=== PATIENT | female | born 1985 | race Two or more races ===

== ENCOUNTER 2018-10-05 21:22 | Emergency (ER) | payer BC ==
--- NOTE | 2018-10-05 22:20 | EDM.PDOC ---
ED HPI GENERAL MEDICAL PROBLEM - General Source of Information: Reports: Patient History Limitations: Reports: No Limitations <Maite Neil - Last Filed: 10/06/18 00:02> <Amadou Lei - Last Filed: 10/06/18 01:52> - General Chief Complaint: TELEMARKETING AGENT Problem Stated Complaint: 16 WKS PG BLEEDING Time Seen by Provider: 10/05/18 21:44 - History of Present Illness INITIAL COMMENTS - FREE TEXT/NARRATIVE: 33 yo F A3 visiting from [place], [place] comes in today for complaints of bleeding during . She is 16 weeks and started experiencing painless bleeding today. She said she had "2 wipes of bright red blood" and "1 wipe here of pinkish color". She is unsure if she saw clotting. She has never had symptoms like this before, but has had a miscarriage in the past around this time in . She denies any other symptoms, including pain, F/C, N/V/ D, dysuria, foul odor or discharge. No recent trauma/falls. No other concerns at this time. Last OB appt in [facility] [place] 09/17/18. Next OB appt in [facility] 10/14/18. (Maite Neil) - Related Data Allergies Allergy/AdvReac Type Severity Reaction Status Date / Time No Known Allergies Allergy Verified 10/05/18 21:41 Home Meds: Home Meds . [No Known Home Meds] 10/05/18 [History] Social & Family History - Tobacco Use Smoking Status *Q: Never Smoker <Maite Neil - Last Filed: 10/06/18 00:02> ED ROS GENERAL - Review of Systems Review Of Systems: ROS reveals no pertinent complaints other than HPI. <Maite Neil - Last Filed: 10/06/18 00:02> ED EXAM - Physical Exam Exam: See Below Exam Limited By: No Limitations General Appearance: Alert, WD/WN, Anxious Eye Exam: Bilateral Eye: Normal Inspection Respiratory/Chest: No Respiratory Distress, Lungs Clear, Normal Breath Sounds, No Accessory Muscle Use, Chest Non-Tender Cardiovascular: Normal Peripheral Pulses, Regular Rate, Rhythm, No Edema, No Gallop, No JVD, No Murmur, No Rub GI/Abdominal Exam: Normal Bowel Sounds, Soft, Non-Tender Fundal Height In cm: 16 Rectal Exam: Normal Exam, Normal Rectal Tone (Female) Exam: Normal Bimanual Exam, Normal External Exam, Normal Speculum Exam, Vaginal Discharge, Other (cervic not visualized, states she has a "tipped uterus"). No: Vaginal Bleeding Heart Tones: Present Heart Tones per Min: 145 Movement: Not Appreciated Back Exam: Normal Inspection Neurological: Alert, Oriented, CN II-XII Intact, Normal Cognition, Normal Gait, Normal Reflexes, No Motor/Sensory Deficits Psychiatric: Normal Affect, Normal Mood Skin Exam: Warm, Dry, Intact, Normal Color, No Rash <Maite Neil - Last Filed: 10/06/18 00:02> Course <Maite Neil - Last Filed: 10/06/18 00:02> <Amadou Lei - Last Filed: 10/06/18 01:52> - Vital Signs Last Recorded V/S: Last Vital Signs Temp 36.9 C 10/05/18 21:41 Pulse 88 10/05/18 21:41 Resp 18 10/05/18 21:41 BP 128/88 10/05/18 21:41 Pulse Ox 100 10/05/18 21:41 - Orders/Labs/Meds Orders: Active Orders 24 hr Category Date Time Status OB Ltd 1 or More Fetus [US] Stat Exams 10/05/18 23:15 Taken CULTURE URINE [RM] Stat Lab 10/05/18 23:13 Ordered PATIENT RETYPE [BBK] Routine Lab 10/05/18 23:48 Ordered Cervical Length [WOMSER] Stat Oth 10/05/18 23:15 Ordered Labs: Laboratory Tests 10/05/18 10/06/18 Range/Units 22:40 00:35 Urine Color Yellow (Yellow) Urine Appearance Clear (Clear) Urine pH 7.0 (5.0-8.0) Ur Specific [place] 1.020 (1.005-1.030) Urine Protein Negative (Negative) Urine Glucose (UA) Negative (Negative) Urine Ketones Negative (Negative) Urine Occult Blood Negative (Negative) Urine Nitrite Negative (Negative) Urine Bilirubin Negative (Negative) Urine Urobilinogen 0.2 (0.2-1.0) Ur Leukocyte Esterase Negative (Negative) Urine RBC Not seen (0-5) /hpf Urine WBC 0-5 (0-5) /hpf Ur Epithelial Cells 0-5 (0-5) /hpf Urine Bacteria Few H (FEW) /hpf Urine Mucus Not seen (FEW) /hpf Blood Type O POSITIVE - Re-Assessments/Exams Free Text/Narrative Re-Assessment/Exam: 10/05/18 22:19 I have ordered ABO/Rh. Will do pelvic exam. 10/05/18 23:06 Discussed w/ on-call TELEMARKETING AGENT Dr. Verduzco. He recommends UA to r/o UTI and abdominal U/S STAT to r/o placentia previa and to get cervical length. 10/05/18 23:52 ABO/RH is O positive. 10/06/18 00:02 Still awaiting UA and U/S. Change of shift. Transferring care to Dr. Lei. (Maite Neil) Free Text/Narrative Re-Assessment/Exam: 10/06/18 01:24 Case received from Maite Neil. Notified by the retail pharmacy technician that no abnormalities were found. The cervical length will need to be determined by the Radiologist, however, the patient does not need to stay for the ultrasound report. Her urinalysis is completely normal. Her blood type is O-positive. She may be safely discharged home, and follow-up with her Shank Paperer when she returns home to [place] this , 10/07/2018. (Amadou Lei) Departure <Maite Neil - Last Filed: 10/06/18 00:02> - Departure Time of Disposition: 01:50 Condition: Good - Discharge Information *PRESCRIPTION DRUG MONITORING PROGRAM REVIEWED*: Not Applicable *COPY OF PRESCRIPTION DRUG MONITORING REPORT IN PATIENT ROSAS: Not Applicable <Amadou Lei - Last Filed: 10/06/18 01:52> - Departure Disposition: Home, Self-Care 01 Clinical Impression: Vaginal bleeding in patient at less than 20 weeks gestation - Discharge Information Referrals: PCP,Not In Area [Primary Care Provider] - Forms: ED Department Discharge Additional Instructions: You were seen in the emergency room for small amount of vaginal bleeding while 16 weeks . Workup in the ER included a urinalysis, a blood typing, heart tones, and a ultrasound. Your urinalysis was normal. You do not have a urinary tract infection. Your blood type is O-positive. heart tones were found to be 145 beats per minute, which is normal for a 16 week fetus. The ultrasound returned normal. The source of the bleeding was not found. You may resume your usual activities. Follow-up with her Shank Paperer when you return home to [place] this coming , 10/07/2018. If any other problems before then, please do not hesitate to return to the ER.
--- NOTE | 2018-10-06 06:52 | US ---
Obstetrical ultrasound: Multiple real-time images were obtained. Dates: Current ultrasound: ANTOINETTE 03/16/19, gestational age 16 weeks 6 days presentation: Cephalic Placenta: Anterior with no findings of placenta previa, no findings of abruption Amniotic fluid: Within normal limits Maternal adnexa: Maternal ovary not visualized due to overlying bowel gas Measurements: BPD: 3.60 cm - 17 weeks 0 days Head circumference: 13.03 cm - 16 weeks 5 days Abdominal circumference: 11.50 cm - 17 weeks 2 days Femur length: 2.19 cm - 16 weeks 4 days Estimated weight: 173 g (0 lbs. 6 oz.), estimated weight at the 93rd percentile Heart rate: 142 bpm Cervical length: 4.3 cm Impression: 1. Single intrauterine fetus currently cephalic in presentation. Dates as noted above. 2. No complicating process is seen by ultrasound at this time. Diagnostic code #1 I agree with preliminary report from [facility], finalized on 10/06/18, 3:22 AM Central Time
== END 2018-10-06 01:59 | disposition home or self-care (01) ==
LOC: JD.ED 21:22
DX: O20.9 Hemorrhage in early pregnancy, unspecified (principal); O09.522 Supervision of elderly multigravida, second trimester; Z3A.16 16 weeks gestation of pregnancy
CPT/HCPCS: 36415; 76815; 76815-26; 81001; 86900; 86901; 87086; 99282; 99284-25